=== PATIENT | male | born 1975 | race Caucasian/White ===

== ENCOUNTER 2020-05-21 08:53 | Emergency (ER) | payer SELFPAY ==
[~2020-05-21] VITALS: Ht 165.1 cm; Wt 59.0 kg
[2020-05-21 08:53] VITALS: BP_SYST 120
[2020-05-21 09:08] VITALS: BP_SYST 120
== END 2020-05-21 09:07 ==
LOC: SED 08:53
DX: Z04.3 Encounter for examination and observation following other accident (principal); V49.9XXA Car occupant (driver) (passenger) injured in unspecified traffic accident, initial encounter; Y93.89 Activity, other specified; Y92.89 Other specified places as the place of occurrence of the external cause; Y99.8 Other external cause status
CPT/HCPCS: 99283